=== PATIENT | female | born 1995 | race Caucasian/White ===

== ENCOUNTER → 2018-06-09 | Emergency (ER) | payer BC ==
[~2018-06-09] VITALS: Ht 162.6 cm; Wt 74.5 kg
[~2018-06-09] MED LIST: YASMIN 3 MG-0.01 TAB PO
[2018-06-09 13:50] VITALS: BP 112/71; TEMP 98
[2018-06-09 15:38] VITALS: PULSE 76
[2018-06-10 23:45] LABS: COLLECTION METHOD CLEAN CATCH
[2018-06-10 23:46] LABS: AMORPHOUS CRYSTAL Present /uL; MUCOUS Present /lpf; PH 7 (5-8); SQUAMOUS EPITHELIAL 0-2 /hpf; URINE APPEARANCE Cloudy; URINE BACTERIA None Seen /hpf; URINE BILIRUBIN Negative (NEGATIVE); URINE BLOOD Negative (NEGATIVE); URINE COLOR Yellow; URINE GLUCOSE Negative (NEGATIVE); URINE KETONE Trace (NEGATIVE); URINE LEUKOCYTE ESTERASE 2+ (NEGATIVE); URINE NITRATE Positive (NEGATIVE); URINE PROTEIN(semi-quant) Negative (NEGATIVE)
== END ==
LOC: COL.ER 13:47
PROVIDERS: Family Medicine
DX: N39.0 Urinary tract infection, site not specified (principal); Z90.89 Acquired absence of other organs